=== PATIENT | male | born 1945 | race Caucasian/White ===

== ENCOUNTER → 2016-12-20 | Outpatient (CLI) | payer MEDICARE, BC ==
[~2016-12-20] MED LIST: ADVIL200 MG PO; ALDACTONE25 MG PO; ANORO ELLIPTA1 EACH INH; ASPIRIN (CHILDR81 MG PO; ASPIRIN LO-DOSE81 MG PO; ATIVAN 1 MG1 MG PO; ATROVENT I0.5 MG/2.5 INH; CARDIZEM CD (T120 MG PO; CARDIZEM CD (T300 MG PO; CARDURA8 MG PO; COLACE100 MG PO; CORDARONE,PACE200 MG PO; DESYREL100 MG PO; DILTIAZEM ER360 M1 PO; DIOVAN HCT 3201 EAC1 PO; DULCOLAX10 MG R; EFFEXOR XR150 MG PO; EFFEXOR XR75 MG PO; ELIQUIS5 MG PO; FERGON325 M1 PO; FERROUS SULFAT324 MG PO; HYDRALAZINE HC100 MG PO; LASIX20 MG PO; LASIX40 MG PO; LEVALBUTER1.25 MG/0. INH; LEVOTHROID (S150 MCG PO; LIPITOR10 MG PO; METOPROLOL TART25 MG PO; MILK OF MA400 MG/5 M PO; NITROSTAT0.4 MG SL; NORCO 5-325 MG1 TAB PO; NORVASC10 MG PO; OCEAN NASAL) (A44 ML NOSE; OMNICEF 300MG300 MG PO; OXYGEN M-15 INH; PAXIL20 MG PO; PLAVIX75 MG PO; PROTONIX20 MG PO; PROTONIX40 MG PO; REGLAN10 MG PO; TOPROL XL25 MG PO; TYLENOL ARTHRI650 MG PO; TYLENOL EXTRA500 MG PO; VALSARTAN-HCTZ1 EAC3 PO; XOPENEX HF45 MCG/INH INH; XOPENEX INH; ZEBETA5 MG PO
--- NOTE | ~2016-12-20 | PUL ---
PATIENT'S NAME: LARRY ROBLES [facility] AGE: 71 Y [address] ROOM: [place], [place] [address] LOCATION: [facility] ADMIT DATE: 12/20/2016 Pulmonary DISCHARGE DATE: FAMILY PHYSICIAN: Donta Leslie MD ATTENDING PHYSICIAN: VINCENT ALLRED NAME OF PROCEDURE: Sleep study DATE OF PROCEDURE: 12/20/16 TECH: YORDY De TEST #: [facility]# [id number] MEDICAL HISTORY: Patient is a 71-year-old gentleman with history of hypersomnia, pulmonary hypertension and nocturnal hypoxemia. SLEEP STAGE SUMMARY: The patient was studied for 421 minutes of which he slept 162 minutes. He fell asleep in 67 minutes and slept for 39% of the night. Sleep architecture revealed a decline in slow wave sleep. RESPIRATORY SUMMARY: Oxygen saturations ranged from 77-89%. One liter of oxygen was initiated at the beginning of this study and maintained throughout the study. There were 97 obstructive apneas and 36 hypopneas. The majority of which occurred to late in the study to allow for initiation of CPAP. EKG SUMMARY: Average heart rate during sleep was 62 beats per minute. LEG MOVEMENT SUMMARY: During certain stages of sleep the patient significant numbers of periodic limb moments. Clinical significance is unclear. SUMMARY: 1. Baseline hypoxemia worse with sleep. 2. Severe obstructive sleep apnea. 3. Possible periodic limb movement disorder. PLAN: Suggest a repeat study with initiation and titration of CPAP and further titration of oxygen and re-evaluation of the leg movements. VELIA COELLO MD [facility]/ PATIENT'S NAME: LARRY ROBLES [facility] AGE: 71 Y [address] ROOM: [place], [place] [address] LOCATION: [facility] ADMIT DATE: 12/20/2016 Pulmonary DISCHARGE DATE: FAMILY PHYSICIAN: Donta Leslie MD ATTENDING PHYSICIAN: IVNCENT ALLRED /[id number] dtt: 12/28/16 1455 , Velia Coellod: 12/24/16 0922
== END | disposition disaster alternative care site (69) ==
LOC: GSLP 20:18
DX: G47.19 Other hypersomnia (principal); G47.33 Obstructive sleep apnea (adult) (pediatric); G47.36 Sleep related hypoventilation in conditions classified elsewhere; I27.2 Other secondary pulmonary hypertension

== ENCOUNTER → 2017-01-26 | Outpatient (CLI) | payer MEDICARE, BC ==
--- NOTE | ~2017-01-26 | PUL ---
PATIENT'S NAME: LARRY ROBLES [facility] AGE: 71 Y [address] ROOM: [place] [address] LOCATION: [facility] ADMIT DATE: 01/26/2017 Pulmonary DISCHARGE DATE: FAMILY PHYSICIAN: Donta Leslie MD ATTENDING PHYSICIAN: VINCENT ALLRED NAME OF PROCEDURE: Sleep Study DATE OF PROCEDURE: 01/26/2017 TECH: YORDY De TEST #: [facility] [place]# [id number] TECHNICAL PARAMETERS: The patient was studied using [employer] 10/20 measuring system. While the patient was studied, there was continuous monitoring of EEG (8 leads), EOG (2 leads), EKG (3 leads), submental EMG (3 leads), tibial (4 leads), respiratory inductive plethysmography (RIP) for thoracic and abdominal effort, oral and nasal airflow with a thermocouple and pressure transducer, and oximetry. The electrical cad technician also performed visual and auditory observations noting things like body position, patient's status, breath sounds, artifact, snoring level and patient comments. Continuous sound was monitored using a 2-way speaker system and video monitoring was performed using an infrared camera. Review of the entire study was performed epoch by epoch utilizing a single epoch and multiple epoch capability sleep system. MEDICAL HISTORY: The patient is a 71-year-old gentleman with persistent difficulty maintaining wakefulness. SLEEP STAGE SUMMARY: The patient was studied for 481 minutes of which he slept 302 minutes. He fell asleep in 63 minutes and slept for 63% of the night. Sleep architecture revealed a decline in slow wave sleep. RESPIRATORY SUMMARY: Oxygen saturations ranged from 78%-92%. Saturations were below 88% for 63 minutes. This study was done to titrate CPAP which was initiated at 6cm. CPAP was titrated to 18 cm with lack of adequate control of the respiratory events. Patient was then switched to BiPAP. BiPAP at 22/18 produced good control of the respiratory events and a period of REM sleep was noted. EKG SUMMARY: Average heart rate during sleep 53 beats per minute. LIMB MOVEMENT SUMMARY: No clinically relevant periodic limb movements were noted. PATIENT'S NAME: LARRY ROBLES [facility] AGE: 71 Y [address] ROOM: [place] [address] LOCATION: [facility] ADMIT DATE: 01/26/2017 Pulmonary DISCHARGE DATE: FAMILY PHYSICIAN: Donta Leslie MD ATTENDING PHYSICIAN: VINCENT ALLRED SUMMARY: Obstructive sleep apnea, BiPAP at 22/18 cm appears adequate to control the respiratory events. VELIA COELLO MD /[id number] dtt: 02/04/17 1018 , Velia Coello. dtd: 01/31/17 1501
== END | disposition disaster alternative care site (69) ==
LOC: GSLP 20:18
DX: G47.33 Obstructive sleep apnea (adult) (pediatric) (principal)